=== PATIENT | male | born 2000 | race African-American/Black ===

== ENCOUNTER 2021-09-26 16:51 | Emergency (ER) | payer OTHER ==
[~2021-09-26] VITALS: Ht 180.3 cm; Wt 84.3 kg
[2021-09-26] VITALS (23 sets, daily range): BP systolic 103–143; BP diastolic 51–88
[2021-09-26 17:41] LABS: HEMATOCRIT 49.1 % (39.0-50.0); IMMATURE GRANULOCYTES 0.1 % (0.0-5.0); MEAN CELL VOLUME 84.2 fL CALC (80.0-100.0); MEAN CORPUSCULAR HGB 27.4 pG CALC (26.0-32.0); MEAN CORPUSCULAR HGB CONC 32.6 g/dL CAL (32.0-36.0); NEUT# 5.27 thou/uL (1.82-7.42); RED BLOOD COUNT 5.83 mill/uL (4.70-6.10); RED CELL DISTRI WIDTH 11.6 % (11.5-15.5)
[2021-09-26 18:04] LABS: ALBUMIN 4.9 g/dL (3.2-5.0); ALKALINE PHOSPHATASE 70 u/l (38-126); ANION GAP 12 (6-22 (CALC)); BILIRUBIN, TOTAL 1.8 mg/dL (0.0-1.4); BUN 10 mg/dL (9-20); BUN/CREATININE RATIO 12 (12-20 (CALC)); CARBON DIOXIDE 28 mmol/l (22-30); CHLORIDE 102 mmol/l (95-108); CREATININE 0.9 mg/dL (0.7-1.3); GFR FOR AFR.AMER. > 60 ML/MIN (>=60 (CALC)); GFR OTHER RACES > 60 ML/MIN (>=60 (CALC)); LIPASE 43 u/l (23-300); POTASSIUM 3.7 mmol/l (3.5-5.1); SGOT/AST 35 u/l (17-59); SODIUM 139 mmol/l (137-146); TOTAL PROTEIN 8.7 g/dL (6.3-8.2)
[2021-09-26 19:57] LABS: URINE BILIRUBIN - DIPSTICK NEGATIVE (NEGATIVE); URINE BLOOD DIPSTICK NEGATIVE (NEGATIVE); URINE COLOR YELLOW; URINE GLUCOSE - DIPSTICK NEGATIVE (NEGATIVE); URINE KETONE 15 mg/dL (NEGATIVE); URINE LEUK ESTERASE NEGATIVE (NEGATIVE); URINE PH 6.5 (4.5-8.0); URINE PROTEIN - DIPSTICK NEGATIVE (NEG-TRACE); URINE SPECIFIC GRAVITY 1.025
[2021-09-26 19:59] LABS: URINE NITRITE - DIPSTICK NEGATIVE (Negative)
== END 2021-09-26 22:30 | DRG 918 ==
LOC: ED 16:51
PROVIDERS: Nurse Practitioner
DX: T55.0X2A Toxic effect of soaps, intentional self-harm, initial encounter (principal); T49.8X2A Poisoning by other topical agents, intentional self-harm, initial encounter; F32.A Depression, unspecified; Y92.149 Unspecified place in prison as the place of occurrence of the external cause; Z20.822 Contact with and (suspected) exposure to COVID-19
CPT/HCPCS: S0164